=== PATIENT | male | born 1965 | race Caucasian/White ===

== ENCOUNTER 2021-06-09 09:31 | Outpatient (RCR) | payer OTHER, SELFPAY | END 2021-06-26 12:38 | disposition home or self-care (01) | LOC: HO.WCC 09:31 | PROVIDERS: PCP Family Medicine; Visit Provider Physician Assistant | DX: S87.82XA Crushing injury of left lower leg, initial encounter (principal); S80.12XA Contusion of left lower leg, initial encounter | CPT/HCPCS: 11042; 99212 ==